=== PATIENT | male | born 1990 | race Caucasian/White ===

== ENCOUNTER 2018-07-06 20:45 | Emergency (ER) | payer BC ==
[~2018-07-06] VITALS: Ht 172.7 cm; Wt 79.4 kg
[~2018-07-06 20:45] MED LIST: BACTRIM DS 8001 TA1 PO; KEFLEX500 MG PO; MOTRIN800 MG PO; TRAMADOL HCL50 MG PO; ZYVOX600 MG PO
[2018-07-06 20:47] VITALS: BP 157/99
[2018-07-06] MEDS ORDERED: FLONASE ALLERG9.9 ML NAS (22:04)
== END 2018-07-06 22:06 | disposition home or self-care (01) ==
LOC: ED 20:45
DX: J10.1 Influenza due to other identified influenza virus with other respiratory manifestations (principal); F17.200 Nicotine dependence, unspecified, uncomplicated; Z88.1 Allergy status to other antibiotic agents; Z88.2 Allergy status to sulfonamides

== ENCOUNTER 2019-10-07 18:24 | Emergency (ER) | payer BC ==
[~2019-10-07] VITALS: Wt 90.7 kg
[~2019-10-07 18:24] MED LIST changes: +FLONASE ALLERG9.9 ML NAS
[2019-10-07 18:33] VITALS: BP 153/85
[2019-10-07 18:52] LABS: BASO % 0.4 % (0.0-1.0); EOS # 0.3 10*3/uL (0.0-0.4); EOS % 3.8 % (1.0-4.0); HEMATOCRIT 41.9 % (42.0-52.0); LYMPH # 2.3 10*3/uL (1.3-4.4); LYMPH % 29.8 % (27.0-41.0); MEAN CELL VOLUME 85.3 fl (80.0-94.0); MEAN CORPUSCULAR HGB 28.7 pg (27.0-31.0); MEAN CORPUSCULAR HGB CONC 33.7 g/dl (33.0-37.0); MEAN PLATELET VOLUME 10.7 fl (9.6-12.3); MONO # 0.4 10*3/uL (0.1-1.0); MONO % 5.7 % (3.0-9.0); NEUT # 4.6 10*3/uL (2.3-7.9); PLATELET COUNT AUTOMATED 188 10*3/uL (130-400); RED BLOOD COUNT 4.91 10*6/uL (4.50-5.90); RED CELL DISTRI WIDTH 12.2 % (0-14.5); WHITE BLOOD COUNT 7.6 10*3/uL (4.8-10.8)
[2019-10-07 19:16] LABS: ALBUMIN 4.2 gm/dl (3.1-4.5); ALKALINE PHOSPHATASE 66 U/L (45-117); BUN 20 mg/dl (7-24); CHLORIDE 106 mmol/L (98-107); CREATININE 1.24 mg/dL (0.70-1.30); LIPASE 145 U/L (73-393); POTASSIUM 3.6 mmol/L (3.5-5.1); SGOT/AST 32 IU/L (3-35); SGPT/ALT 32 U/L (12-78); SODIUM 138 mmol/L (136-145); TOTAL PROTEIN 7.6 gm/dL (6.4-8.2)
[2019-10-07 19:17] LABS: TROPONIN I < 0.015 ng/ml (<0.045)
[2019-10-07 20:27] LABS: BILIRUBIN NEGATIVE (NEGATIVE); CLARITY CLEAR (CLEAR); COLOR YELLOW (YELLOW); GLUCOSE NEGATIVE (NEGATIVE); KETONE NEGATIVE (NEGATIVE)
[2019-10-07 20:30] LABS: BLOOD NEGATIVE (NEGATIVE); LEUKO ESTERASE NEGATIVE (NEGATIVE); NITRITE NEGATIVE (NEGATIVE); PH 6.5 (5.0-9.0); SPECIFIC GRAVITY 1.025 (1.005-1.030); UROBILINOGEN 0.2 E.U./dl (0.2-1.0)
[2019-10-07 20:34] LABS: BACTERIA TRACE; EPITHELIAL CELLS 0-2; MUCOUS 1+; RBC 0-2 rbc/hpf (0-2); WBC 0-2 wbc/hpf (0-5)
[2019-10-07] MEDS ORDERED: PEPCID AC20 MG PO (21:08)
== END 2019-10-07 21:25 | disposition home or self-care (01) ==
LOC: ED 18:24
PROVIDERS: Nurse Practitioner
DX: K20.9 Esophagitis, unspecified (principal); Z88.1 Allergy status to other antibiotic agents

== ENCOUNTER → 2020-03-07 | Outpatient (CLI) | payer BC ==
[~2020-03-07] MED LIST changes: +PEPCID AC20 MG PO
== END | disposition home or self-care (01) ==
LOC: COVID19 10:30
PROVIDERS: ATTEND Hospitalist
DX: Z20.828 Contact with and (suspected) exposure to other viral communicable diseases (principal)

== ENCOUNTER 2023-09-09 09:03 | Emergency (ER) | payer BC ==
[~2023-09-09] VITALS: Ht 172.7 cm; Wt 86.2 kg
[2023-09-09] MEDS ORDERED: IBUPROFEN 400 MG TAB PO ONE (09:30)
[2023-09-09] MEDS ORDERED: ACETAMINOPHEN 325 MG TAB PO ONE (09:30)
[2023-09-09 09:36] VITALS: BP 127/83
[2023-09-09] MEDS ORDERED: Lidocaine Hydrochloride 5 ML AMP SC ONE (10:05)
[2023-09-09] MEDS ORDERED: CEPHALEXIN500 M1 PO (10:14)
[2023-09-09] MEDS ORDERED: TYLENOL EXTRA500 MG PO (10:14)
[2023-09-09] MEDS ORDERED: Motrin,Rufen400 MG PO (10:14)
[2023-09-09] MEDS ORDERED: POLYSPORIN OI28.3 GM TP (10:16)
[2023-09-09] MEDS ORDERED: Tdap Vaccine 0.5 ML SYR (Adult Vaccine) IM ONE (10:20)
[2023-09-09] MEDS ORDERED: CEPHALEXIN250 MG PO (11:04)
== END 2023-09-09 11:45 | disposition home or self-care (01) ==
LOC: ED 09:03
DX: S61.512A Laceration without foreign body of left wrist, initial encounter (principal); F17.200 Nicotine dependence, unspecified, uncomplicated; Z88.1 Allergy status to other antibiotic agents; V27.49XA Other motorcycle driver injured in collision with fixed or stationary object in traffic accident, initial encounter; Y93.I9 Activity, other involving external motion; Y92.488 Other paved roadways as the place of occurrence of the external cause; Y99.8 Other external cause status